=== PATIENT | female | born 1970 | race Caucasian/White ===

== ENCOUNTER → 2020-05-30 | Outpatient (CLI) | payer BC, OTHER | LOC: RAD 08:26 | DX: M43.22 Fusion of spine, cervical region (principal); M40.50 Lordosis, unspecified, site unspecified ==

== ENCOUNTER → 2020-06-02 | Outpatient (CLI) | payer BC, OTHER | LOC: MRI 13:45 | DX: M50.121 Cervical disc disorder at C4-C5 level with radiculopathy (principal); M43.22 Fusion of spine, cervical region; M48.02 Spinal stenosis, cervical region; M47.22 Other spondylosis with radiculopathy, cervical region ==

== ENCOUNTER → 2020-06-25 | Outpatient (CLI) | payer BC, OTHER ==
[~2020-06-25] MED LIST: CELEXA 20 MG TA20 MG PO; ENDOCET 10-3251 EACH PO; HYOSCYAMINE0.125 M1 SUBLING; LEVOTHYROXINE50 MCG PO; NEURONTIN 300M300 M2 PO; PERCOCET 5-3251 EACH PO; PROTONIX40 M2 PO; [UNRECOGNIZED DRUG - CODE] PO
== END ==
LOC: LAB 07:22
DX: Z01.812 Encounter for preprocedural laboratory examination (principal); Z20.828 Contact with and (suspected) exposure to other viral communicable diseases